=== PATIENT | female | born 1980 | race African-American/Black ===

== ENCOUNTER 2018-09-15 12:29 | Emergency (ER) | payer OTHER ==
[2018-09-15 13:58] VITALS: BP 127/79; PULSE 67; TEMP 98; BMI 32.8
--- NOTE | 2018-09-15 14:09 | PDOC ---
History of Present Illness - General Chief Complaint: Pain Stated Complaint: FALL W/COMP Time Seen by Provider: 09/15/18 14:01 - History of Present Illness Initial Comments: 09/15/18 14:06 37-year-old female without comorbidities presents for evaluation of left knee pain after trip and fall which occurred just prior to her arrival in the emergency room. The trip and fall occurred at work. She is able to bear weight. She points to the anterior aspect of the left knee as the area of her discomfort. 09/15/18 14:06 Patient fell on to her left knee directly. She did not hit her head. There has been no post injury nausea vomiting visual changes or headaches. Past History - Past Medical History Allergies/Adverse Reactions: Allergies Allergy/AdvReac Type Severity Reaction Status Date / Time codeine AdvReac Severe Vomiting Verified 09/15/18 13:55 - Suicide/Smoking/Psychosocial Hx Smoking History: Never smoked Hx Alcohol Use: No Drug/Substance Use Hx: No Review of Systems - Review of Systems Musculoskeletal: Yes: Joint Pain *Physical Exam - Vital Signs Last Vital Signs Temp Pulse Resp BP Pulse Ox 98.0 F 67 20 127/79 98 09/15/18 13:55 09/15/18 13:55 09/15/18 13:55 09/15/18 13:55 09/15/18 13:55 - Physical Exam Comments: 09/15/18 14:07 There is a small superficial abrasion on the anterior aspect of the left knee. There is full range of motion which is nonpainful. No medial lateral joint line tenderness no tenderness about the medial or lateral femoral condyles. No evidence of instability. There is mild swelling about the anterior aspect the knee over the patella. There is actually no tenderness about the patella extensor mechanism is intact. She is neurovascularly intact. Full nonpainful range of motion of the hip and ankle. No gross sensorimotor deficits. Medical Decision Making - Medical Decision Making 09/15/18 14:08 Contusion left knee. I've foregone x-rays based on clinical examination. I do not suspect fracture. I will give her orthopedic follow-up for further evaluation and treatment options. She has refused crutches. She may weight-bear as tolerated. She would like to get back to work. *DC/Admit/Observation/Transfer Diagnosis at time of Disposition: Contusion of knee, left - Discharge Dispostion Disposition: HOME Condition at time of disposition: Stable Decision to Admit order: No - Referrals Referrals: Renny Wise DO [Staff Physician] - - Patient Instructions Printed Discharge Instructions: Contusion Additional Instructions: Tylenol and Motrin as directed for pain. Return to the emergency room should symptoms worsen. Follow-up with orthopedics as directed in the next 1-2 days. Please take the Tylenol and Motrin as directed. - Post Discharge Activity
== END 2018-09-15 14:28 | disposition home or self-care (01) ==
LOC: JERFT 12:29
DX: S80.02XA Contusion of left knee, initial encounter (principal); W01.0XXA Fall on same level from slipping, tripping and stumbling without subsequent striking against object, initial encounter; Y93.89 Activity, other specified; Y92.238 Other place in hospital as the place of occurrence of the external cause; Y99.0 Civilian activity done for income or pay
CPT/HCPCS: 99281-25

== ENCOUNTER 2020-03-17 14:06 | Emergency (ER) | payer OTHER ==
--- NOTE | 2020-03-17 14:08 | PDOC ---
History of Present Illness - General Chief Complaint: Choking Sensation Stated Complaint: CHOKING Time Seen by Provider: 03/17/20 14:08 History Source: Patient - History of Present Illness Initial Comments: 03/17/20 14:31 39F w/hx p/w acute onset choking sensation. She reports eating lunch when she began to feel the food "stuck" in her mid sternum. She attempted water po immediately after symptom onset, and immediately regurgitated the water Past History - Medical History Allergies/Adverse Reactions: Allergies Allergy/AdvReac Type Severity Reaction Status Date / Time codeine AdvReac Severe Vomiting Verified 03/17/20 14:07 eggplant AdvReac Verified 03/17/20 14:07 - Psycho-Social/Smoking History Smoking History: Never smoked Discharge - Discharge Information Problems reviewed: Yes Clinical Impression/Diagnosis: Food impaction of esophagus Qualifiers: Encounter type: initial encounter Qualified Code(s): T18.128A - Food in e sophagus causing other injury, initial encounter Condition: Stable Disposition: HOME - Admission No - Follow up/Referral - Patient Discharge Instructions Patient Printed Discharge Instructions: DI for Choking Episode Additional Instructions: You were evaluated in the ED after choking on food. Your symptoms improved spontaneously, and you were able to drink water without difficulty. Your X-ray was normal and did not show anything in the lungs. Follow up with your primary care physician as needed. Return to the ED if you develop chest pain, difficulty breathing, high fevers. Or for work. - Post Discharge Activity
[2020-03-17 14:12] VITALS: BMI 33.4
--- NOTE | 2020-03-17 15:13 | PDOC ---
Documentation entered by Stephanie Fountain SCRIBE, acting as scribe for Laron Nicholson MD. Laron Nicholson MD: This documentation has been prepared by the christoferibАлександр patrick Lincy, SCRIBE, under my direction and personally reviewed by me in its entirety. I confirm that the documentation accurately reflects all work, treatment, procedures, and medical decision making performed by me. Attending Attestation - Resident Resident Name: WillDillon - ED Attending Attestation I have performed the following: I have examined & evaluated the patient, The case was reviewed & discussed with the resident, I agree w/resident's findings & plan, Exceptions are as noted - HPI HPI: 03/17/20 15:03 The patient is a 39-year-old female with no reported past medical history who presents to the emergency department with choking sensation. The patient reports she was on lunch break, she was eating rice and fish, after a bite of the fish, she felt like she was choking like something was stuck in her throat. The patient reports she took a sip of water, which she vomited up along with food. The patient reports she wanted to return to the ED, when she had another episode of food emesis. The patient reports she felt relief after burping. - Physicial Exam PE: 03/17/20 15:05 Vitals: Triage vital signs reviewed General Appearance: No acute distress, well nourished, well developed Neck: Supple; No nuchal rigidity Chest Wall: Nontender Cardiac: Regular rate and rhythm, no murmurs, no rubs, no gallops Lungs: Clear to auscultation bilateral, good air movement bilaterally Abdomen: Soft, nondistended, normal bowel sounds, nontender to palpation Extremities: Full range of motion to all extremities, no cyanosis, clubbing, or edema Skin: Warm and dry, no rashes or lesions, no rash, no petechiae Psych: Normal mood, normal affect. - Medical Decision Making 03/17/20 15:12 39 years old past medical history significant for lupus presents to the ED with choking episode After choking episode resolved patient feels fine Now able to drink water no issues. No pain with swallowing no difficulty breathing X-ray demonstrates no acute pathology Findings, the need for follow-up and strict return instructions cussed with patient. Discharge - Discharge Information Problems reviewed: Yes Clinical Impression/Diagnosis: Food impaction of esophagus Qualifiers: Encounter type: initial encounter Qualified Code(s): T18.128A - Food in esophagus causing other injury, initial encounter Condition: Stable Disposition: HOME - Follow up/Referral - Patient Discharge Instructions Patient Printed Discharge Instructions: DI for Choking Episode Additional Instructions: You were evaluated in the ED after choking on food. Your symptoms improved spontaneously, and you were able to drink water without difficulty. Your X-ray was normal and did not show anything in the lungs. Follow up with your primary care physician as needed. Return to the ED if you develop chest pain, difficulty breathing, high fevers. Or for work. - Post Discharge Activity
[2020-03-17 15:24] VITALS: BP 110/64; PULSE 72; TEMP 98.5
== END 2020-03-17 15:29 | disposition home or self-care (01) ==
LOC: JER 14:06
DX: T18.128A Food in esophagus causing other injury, initial encounter (principal)
CPT/HCPCS: 71046-TC-FY; 99284-25

== ENCOUNTER 2020-08-18 08:53 | Emergency (ER) | payer OTHER ==
[2020-08-18 09:40] VITALS: BP 129/74; PULSE 77; TEMP 98.6; BMI 30.4
== END 2020-08-18 11:07 | disposition home or self-care (01) ==
LOC: JER 08:53
DX: S39.012A Strain of muscle, fascia and tendon of lower back, initial encounter (principal)
CPT/HCPCS: 99283-25